=== PATIENT | male | born 1940 | race Caucasian/White ===

== ENCOUNTER → 2016-11-18 | Day surgery (SDC) | payer MEDICARE ==
[~2016-11-18] VITALS: Ht 177.8 cm; Wt 81.6 kg
[~2016-11-18] MED LIST: LISINOPRIL/HCTZ1 TA4 PO; OXYCONTIN40 MG PO; OXYCONTIN60 MG PO; ZOLOFT25 MG PO
--- NOTE | ~2016-11-18 | O ---
[place], [place] OPERATIVE NOTE NAME: ELADIO CALVILLO UNIT #: [id number] ROOM: DOCTOR: RAUL MUNSON MD BIRTHDATE: [birth year] DOS: 11/18/2016 PREOPERATIVE DIAGNOSIS: Cataract, left eye. POSTOPERATIVE DIAGNOSIS: Cataract, left eye. OPERATION: Extracapsular cataract extraction by phacoemulsification with posterior chamber intraocular lens implantation, left eye. ANESTHESIA: Monitored standby. OPERATIVE FINDINGS AND PROCEDURE: 2% Xylocaine topical anesthetic gel was applied to the eye in the preop area. The patient was taken to the operating room and prepped and draped in the standard fashion for sterile intraocular surgery. A time out procedure was performed verifying correct patient, correct site and corrects lens with Ladarius Munson M.D. The operating microscope was swung into position and the lid speculum was inserted. Using a Karlie paracentesis blade, a paracentesis was made through clear cornea. Viscoelastic was used to fill the anterior chamber. Using a metal keratome a 2.4 mm self-sealing clear corneal cataract incision was made temporally at the limbus. Using a pre-bent 25 gauge cystotome needle, a standard continuous curvilinear capsulorrhexis was performed. The anterior capsule was removed with forceps. The lens nucleus was hydrodissected and phacoemulsified in the posterior chamber. Cortical material was removed with the irrigation aspiration hand piece and the posterior capsule was then polished with a curet under irrigation. The posterior chamber and capsular bag were filled with viscoelastic. A posterior chamber intraocular lens manufactured by: [employer], Model #[id number], and 22.0 diopters, left eye, in strength were then inserted into the posterior chamber and within the capsular bag using the lens cartridge and injector system. Viscoelastic was removed using the irrigation aspiration handpiece. The anterior chamber was filled with balanced salt solution through the paracentesis. Both the paracentesis site and cataract incisions were hydrated with BSS and verified to be water-tight and self-sealing. Cefuroxime 1 mg/1 mL was injected into the anterior chamber through the paracentesis site. The incision checked to be water-tight using a Weck-Cece sponge. The integrity of the cataract wound and ocular tension were checked. Lid speculum and drapes were removed. The patient was transferred from the operating room to the recovery room in satisfactory condition. [place], [place] OPERATIVE NOTE NAME: ELADIO CALVILLO UNIT #: [id number] ROOM: DOCTOR: RAUL MUNSON MD BIRTHDATE: [birth year] RAUL MUNSON MD CM:OPRECORD:OPERATIVE NOTE 1323 1757 RAUL MUNSON MD 11/18/16 1758 interface
[2016-11-18 11:45] VITALS: BP 140/64
[2016-11-18 13:10] VITALS: BP 140/65
[2016-11-18 13:24] VITALS: BP 148/69
[2016-11-18 13:35] VITALS: BP 131/60
== END | disposition home or self-care (01) ==
LOC: SDC 11-17 11:00
DX: H26.9 Unspecified cataract (principal); I10 Essential (primary) hypertension; F32.9 Major depressive disorder, single episode, unspecified; K21.9 Gastro-esophageal reflux disease without esophagitis; M46.90 Unspecified inflammatory spondylopathy, site unspecified; Z82.49 Family history of ischemic heart disease and other diseases of the circulatory system

== ENCOUNTER → 2016-12-23 | Day surgery (SDC) | payer MEDICARE ==
[~2016-12-23] VITALS: Ht 177.8 cm; Wt 81.6 kg
--- NOTE | ~2016-12-23 | O ---
[place], [place] OPERATIVE NOTE NAME: ELADIO CALVILLO UNIT #: [id number] ROOM: DOCTOR: RAUL MUNSON MD BIRTHDATE: [birth year] DOS: 12/23/2016 PREOPERATIVE DIAGNOSIS: Cataract, right eye. POSTOPERATIVE DIAGNOSIS: Cataract, right eye. OPERATION: Extracapsular cataract extraction by phacoemulsification with posterior chamber intraocular lens implantation, right eye. ANESTHESIA: Monitored standby. OPERATIVE FINDINGS AND PROCEDURE: A 2% Xylocaine topical anesthetic gel was applied to the eye in the preop area. The patient was taken to the operating room and prepped and draped in the standard fashion for sterile intraocular surgery. A time out procedure was performed verifying correct patient, correct site and corrects lens with Ladarius Munson M.D. The operating microscope was swung into position and the lid speculum was inserted. Using a Karlie paracentesis blade, a paracentesis was made through clear cornea. Viscoelastic was used to fill the anterior chamber. Using a metal keratome a 2.4 mm self-sealing clear corneal cataract incision was made temporally at the limbus. Using a pre-bent 25 gauge cystotome needle, a standard continuous curvilinear capsulorrhexis was performed. The anterior capsule was removed with forceps. The lens nucleus was hydrodissected and phacoemulsified in the posterior chamber. Cortical material was removed with the irrigation aspiration hand piece and the posterior capsule was then polished with a curet under irrigation. The posterior chamber and capsular bag were filled with viscoelastic. A posterior chamber intraocular lens manufactured by: [employer], Model #[id number], and 22.0 diopters in strength were then inserted into the posterior chamber and within the capsular bag using the lens cartridge and injector system. Viscoelastic was removed using the irrigation aspiration handpiece. The anterior chamber was filled with balanced salt solution through the paracentesis. Both the paracentesis site and cataract incisions were hydrated with BSS and verified to be water-tight and self-sealing. Cefuroxime 1 mg/0.1 mL was injected into the anterior chamber through the paracentesis site. The incision checked to be water-tight using a Weck-Cece sponge. The integrity of the cataract wound and ocular tension were checked. Lid speculum and drapes were removed. The patient was transferred from the operating room to the recovery room in satisfactory condition. [place], [place] OPERATIVE NOTE NAME: ELADIO CALVILLO UNIT #: [id number] ROOM: DOCTOR: RAUL MUNSON MD BIRTHDATE: [birth year] RAUL MUNSON MD CM:OPRECORD:OPERATIVE NOTE 1307 175 RAUL MUNSON MD 12/23/16 1759 interface
[2016-12-23 11:59] VITALS: BP 146/57
[2016-12-23 13:04] VITALS: BP 125/57
[2016-12-23 13:15] VITALS: BP 132/60
[2016-12-23 13:30] VITALS: BP 122/63
== END | disposition home or self-care (01) ==
LOC: SDC 12-17 11:00
DX: H26.9 Unspecified cataract (principal); F32.9 Major depressive disorder, single episode, unspecified; I10 Essential (primary) hypertension; K21.9 Gastro-esophageal reflux disease without esophagitis; M46.90 Unspecified inflammatory spondylopathy, site unspecified; Z82.49 Family history of ischemic heart disease and other diseases of the circulatory system; Z98.890 Other specified postprocedural states; Z87.891 Personal history of nicotine dependence

== ENCOUNTER 2018-10-09 17:44 | Inpatient (IN) | payer MEDICARE ==
[2018-10-09] VITALS (7 sets, daily range): BP systolic 102–146; BP diastolic 33–80
[~2018-10-09] VITALS: Ht 177.8 cm; Wt 81.9 kg
--- NOTE | ~2018-10-09 | PR ---
[place], [place] PROGRESS NOTE NAME: ELADIO CALVILLO UNIT #: [id number] ROOM: 404 DOCTOR: GROVER PATEL MD BIRTHDATE: [birth year] DOS: 10/10/2018 SUBJECTIVE: The patient is feeling much better after blood transfusion and hydration. OBJECTIVE: GENERAL APPEARANCE: The patient is alert and oriented x 3, in no visible distress. VITAL SIGNS: Blood pressure 153/61, heart rate of 74 beats per minute, breathing 17 times per minute, afebrile. HEENT AND NECK: Exam within normal limits. CARDIOVASCULAR SYSTEM: Heart rate is regular in rate and rhythm. S1 and S2 normally audible. LUNGS: Clear to auscultation. ABDOMEN: Soft, nontender. No obvious organomegaly. Bowel sounds are present. EXTREMITIES: Without significant cyanosis or edema. IMPRESSION: 1. Acute blood loss anemia. Hemoglobin is still low at 6.8. I will give the patient 2 more units of packed cells. The patient is still having black colored stools. 2. Acute upper gastrointestinal bleed. The patient is waiting for further workup by Dr. Fall, the bean sprout grower. 3. Acute over chronic kidney failure, creatinine of 2.02, has improved with hydration with normal saline to 1.54. I will continue with normal saline infusion. 4. 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 The patient remains on oxycodone. 5. Major depression, treated and controlled with Zoloft. 6. Benign essential hypertension. Blood pressure is monitored and treated and staying normal. 7. The patient remains on IV Protonix for GI bleed. GROVER PATEL MD CM:PNTRANS 1625 22 GROVER PATEL MD 10/10/181822 interface
--- NOTE | ~2018-10-09 | CON ---
[place], [place] REPORT OF CONSULTATION NAME: ELADIO CALVILLO UNIT #: [id number] ROOM: 404 DOCTOR: RANDY BLACKMON MD BIRTHDATE: [birth year] DOS: 10/09/2018 HISTORY OF PRESENT ILLNESS: A 78-year-old patient who was seen for past 2 weeks, feeling tired, short of breath and not feeling well, diarrhea, eventually some blood in the stool was noticed. The patient has been taking apparently some nonsteroidal anti-inflammatory here and there for his back pain, which is a chronic issue for him at the time of admission, H and H was 6 and 19, all macrocytic indices; however, platelet 276,000. INR was 1.0. Comprehensive metabolic panel: Glucose 226, BUN and creatinine 49 and 2.0 with a GFR of 32. His INR 1.0. His electrolyte balance, liver function test normal. PAST MEDICAL HISTORY: Associated with chronic back pain and history of hypertension and depression. PAST SURGICAL HISTORY: Cardiac catheterization, appendectomy, and cystoscopy. MEDICATIONS: List has been reviewed. ALLERGIES: No known medication. SOCIAL HISTORY: Nonsmoker, rare alcohol consumer. FAMILY HISTORY: Myocardial infarction history. REVIEW OF SYSTEMS: HEENT: Denies double vision, blurred vision. RESPIRATORY: Denies acute shortness of breath. CARDIOVASCULAR: Denies acute chest pain. DIGESTIVE SYSTEM: No hematemesis, no hematochezia; however, some diarrhea, blood in the stool. PHYSICAL EXAMINATION: VITAL SIGNS: Stable. HEENT: Head normocephalic, nontraumatic. Eyes: Pupils round, reactive. Sclerae nonicteric. NECK: Supple, no thyromegaly, no cervical lymphadenopathy. CHEST: Symmetric anatomy, equal expansion. No wheeze. Acute rhonchi. HEART: Normal sinus rhythm, no gallop, no murmur. ABDOMEN: Soft. No hepato-organomegaly. Bowel sounds present. No pulsatile mass. EXTREMITIES: No cyanosis, no pedal edema. NEUROLOGIC: Alert, oriented to time, place, person. Sensory, motor intact. Cranial nerves 2-12 intact. LABORATORY DATA: Reviewed, records reviewed, we will discuss with the family. PLAN AND DISCUSSION: 1. Gastrointestinal bleed. Etiology to be determined, most likely upper gastrointestinal bleed with elevation of BUN, prerenal azotemia, tachycardia. All have been of the same etiology. He has had colonoscopy a few years ago; [place], [place] REPORT OF CONSULTATION NAME: ELADIO CALVILLO UNIT #: [id number] ROOM: 404 DOCTOR: RANDY BLACKMON MD BIRTHDATE: [birth year] however, this is going to be reassessed during his stay, we are going to have a troponin level also obtained. He is going to get 2 units of transfusion and he is going to remain on PPI and clinical reassessment. Other adjunctive diagnoses, hypertension, chronic lower back pain, history of nonsteroidal anti-inflammatory. Thank you very much. RANDY BLACKMON MD CM:CONSTR:REPORT OF CONSULTATION 13 10/10/18 0847 interface
--- NOTE | ~2018-10-09 | O ---
[place], [place] OPERATIVE NOTE NAME: ELADIO CALVILLO UNIT #: [id number] ROOM: 404 DOCTOR: RANDY BLACKMON MD BIRTHDATE: [birth year] DOS: 10/10/2018 HISTORY OF PRESENT ILLNESS: The patient has presented with profound anemia, tiredness, undergoing investigation. The patient has been seen last night in the Emergency Room, was found to have an H and H of 6 and 19, status post transfusion of 2 units, CBC still has been about 6 and 20. The patient with a nonsteroidal anti-inflammatory history. PROCEDURE: Today's procedure part of investigation is panendoscopy plus biopsy. PREMEDICATION: Propofol. SCOPE: Olympus forward-viewing gastroscope Q10 video. REPORT: After putting the patient in left lateral position and application of lubricant to the scope. Scope was introduced. Thereafter, under direct visualization, advanced through the length. Gastric pouch was entered. Gastritis seen, antral ulcer, small was noticed. Duodenal bulb ulcer or duodenitis was noticed. Neither was actively bleeding. Margin of antral ulcer, biopsied. Photographic series obtained. Air was suctioned out. The patient was extubated, tolerated the procedure well. IMPRESSION: Antral ulcer, duodenal ulcer, status post biopsy. PLAN AND DISCUSSION: Continuation with Protonix and full liquid diet and transfusion of 2 units, stabilization of H and H and future he may need colonoscopy. RANDY BLACKMON MD CM:OPRECORD:OPERATIVE NOTE 45 20 RANDY BLACKMON MD 10/14/18 1523 interface
--- NOTE | ~2018-10-09 | WRIGHTHP ---
[place], [place] PATIENT HISTORY AND PHYSICAL EXAM NAME: [facility]ILLO [id number] UNIT #: [id number] ROOM: 404 DOCTOR: GROVER PATEL MD BIRTHDATE: [birth year] DOS: 10/09/2018 HISTORY OF PRESENT ILLNESS: The patient is a 78-year-old gentleman with a past medical history of: 1. Benign essential hypertension. 2. Paroxysmal SVT. 3. 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 4. Lumbar spondylosis. 5. History of kidney stones. The patient presented to the Emergency Department with 2-week complaints of noticing black and red stools. He also had some episodes of vomiting and he was found to be severely anemic with hemoglobin of 6.3 and also had a creatinine elevation to 2.02 with BUN at 49 and blood sugar of 226. The patient was ordered 2 units of packed cells and admitted to a monitored bed with Dr. Fall on a stat consult. No chest pains. Some shortness of breath with exertion. No other GI or urinary symptoms. REVIEW OF SYSTEMS: RESPIRATORY: Some shortness of breath. GASTROINTESTINAL: Black and red stools. CARDIOVASCULAR: No chest pain, no palpitations. FAMILY HISTORY: Not contributory. SOCIAL HISTORY: Denies smoking cigarettes, alcohol and drug abuse. HOME MEDICATIONS: Zoloft, oxycodone. ALLERGIES: No known drug allergies. PHYSICAL EXAMINATION: GENERAL APPEARANCE: Alert, oriented x 3, poor historian. No visible distress. HEENT AND NECK: Extraocular movements are intact. Sclerae are anicteric. Oral mucosa is moist and clean. No obvious facial weakness. Neck is supple without any lymphadenopathy. No thyromegaly. No JVD. No carotid arterial bruits. LUNGS: Clear to auscultation. No wheezing. No rhonchi. CARDIOVASCULAR SYSTEM: Heart rate is regular in rate and rhythm. S1 and S2 normally audible. No significant murmur or any other abnormal cardiac sounds. ABDOMEN: Soft, nontender. No obvious organomegaly. Bowel sounds are present. No obvious herniation. EXTREMITIES: Without significant cyanosis or edema. Warm to touch. CENTRAL NERVOUS SYSTEM: Alert and oriented x 3. Cranial nerves II-XII are intact. Speech is normal. The patient is able to move all extremities. Normal muscle strength. Deep tendon reflexes are equal on both sides. Plantars were downgoing. IMPRESSION AND PLAN: 1. Acute upper gastrointestinal bleed with black and red stools with severe anemia of 6.3 hemoglobin with packed cells arranged for him for blood [place], [place] PATIENT HISTORY AND PHYSICAL EXAM NAME: ELADIO CALVILLO UNIT #: [id number] ROOM: 404 DOCTOR: GROVER PATEL MD BIRTHDATE: [address] Fall, the rig superintendent has already evaluated him and hemoglobin will be monitored and the patient started on intravenous Protonix. The patient is not giving any history of using NSAIDs. He only takes oxycodone for pain control. 2. Precipitous anemia with precipitous drop in hemoglobin to 6.2 from acute upper gastrointestinal bleed. To be monitored and followed and treated with blood transfusion. 3. Cervical and lumbar spinal stenosis with lumbar spondylosis with chronic pains. I continued oxycodone. 4. Major depression, recurrent, mild, treated with Zoloft. 5. Benign essential hypertension. Blood pressures to be monitored and treated. The patient is on diet. GROVER PATEL MD CM:HISPHYS:PATIENT HISTORY AND PHYSICAL EXAMINATION 10 37 GROVER PATEL MD 10/09/182136 interface
--- NOTE | ~2018-10-09 | EKG ---
[place], [place] ELECTROCARDIOGRAM REPORT NAME: ELADIO CALVILLO UNIT #: [id number] ROOM: 404 DOCTOR: EPIPHANY DRAFT REPORT BIRTHDATE: [birth year] [facility] Test Date: 2018-10-10 Test Time: 16:54:14 Pat Name: ELADIO CALVILLO Department: Room: [facility] 2 Gender: M Integrated Circuits Inspector: Barbra Leonard : 1940 Requested By: GROVER PATEL Order Number: [id number] Reading MD: Joelle Peralta MD Measurements Intervals [place] Rate: 77 P: 0 LA: 81 QRS: 1 QRSD: 170 T: -2 QT: 440 QTc: 499 Interpretive Statements Second degree 1st degree AV block, blocked PAC Atrial premature complexes Right bundle branch block No previous ECG available for comparison Electronically Signed On 10-11-2018 15:51:35 PDT by Joelle Peralta MD CM:EKGRPT:ELECTROCARDIOGRAM REPORT 1654 1551 GROVER PATEL MD EPIPHANY DRAFT REPORT GROVER PATEL MD
[2018-10-09 18:16] LABS: BASO % 0.2 % (0.0-1.0); EOS # 0.1 10*3/uL (0.0-0.4); EOS % 0.6 % (1.0-4.0); HEMATOCRIT 19.2 % (42.0-52.0); HEMOGLOBIN 6.3 g/dl (14.0-18.0); LYMPH # 1.8 10*3/uL (1.3-4.4); LYMPH % 14.6 % (27.0-41.0); MEAN CELL VOLUME 101.6 fl (80.0-94.0); MEAN CORPUSCULAR HGB 33.3 pg (27.0-31.0); MEAN CORPUSCULAR HGB CONC 32.8 g/dl (33.0-37.0); MEAN PLATELET VOLUME 9.4 fl (9.6-12.3); MONO % 7.7 % (3.0-9.0); NEUT # 9.5 10*3/uL (2.3-7.9); NEUT % 75.8 % (47.0-73.0); NUCLEATED RED BLOOD CELL 0.2 % (0.0-0.0); PLATELET COUNT AUTOMATED 276 10*3/uL (130-400); RED BLOOD COUNT 1.89 10*6/uL (4.50-5.90); RED CELL DISTRI WIDTH 16.9 % (0-14.5); WHITE BLOOD COUNT 12.6 10*3/uL (4.8-10.8)
[2018-10-09 18:46] LABS: ALBUMIN 3.2 gm/dl (3.1-4.5); CREATININE 2.02 mg/dL (0.70-1.30); POTASSIUM 3.5 mmol/L (3.5-5.1); TOTAL PROTEIN 6.4 gm/dL (6.4-8.2)
--- NOTE | 2018-10-09 20:50 | NUR ---
A 78, admitted to , under the services of Dr. AMANDA MARLOW,GROVER Palafox with a diagnosis of GI BLEED, ACUTE RENAL FAILURE, ANEMIA. Chief complaint is DARK STOOLS X2 WKS WITH RED BLEEDING ALSO MORE RECENTLY. Patient arrived via stretcher from ER. Monitor applied. Initial assessment completed. Vital signs taken and recorded. DR. AMANDA MARLOW,GROVER Palafox notified of admission to the unit. Orders received. See assessment for past medical history, medications and allergies. Patient and/or family oriented to unit. [address] visitation policy reviewed. Clothing/patient valuable form completed. YESSY GONZALES
[2018-10-09 21:00] LABS: BILIRUBIN NEGATIVE (NEGATIVE); BLOOD NEGATIVE (NEGATIVE); CLARITY CLEAR (CLEAR); COLOR YELLOW (YELLOW); GLUCOSE NEGATIVE (NEGATIVE); KETONE NEGATIVE (NEGATIVE); LEUKO ESTERASE NEGATIVE (NEGATIVE); NITRITE NEGATIVE (NEGATIVE); PH 5.5 (5.0-9.0); SPECIFIC GRAVITY 1.015 (1.005-1.030); UROBILINOGEN 0.2 E.U./dl (0.2-1.0)
[2018-10-09 21:12] LABS: BACTERIA TRACE; WBC 0-2 wbc/hpf (0-5)
[2018-10-09] MEDS ORDERED: OXYCONTIN40 M1 PO (22:34)
[2018-10-10] VITALS (13 sets, daily range): BP systolic 106–153; BP diastolic 43–82
--- NOTE | 2018-10-10 | NUR ---
Patient resting quietly with no c/o discomfort. Respirations easy and regular. Vital signs stable. No overt distress. YESSY GONZALES
--- NOTE | 2018-10-10 04:10 | NUR ---
Patient resting quietly with no c/o discomfort. Respirations easy and regular. Vital signs stable. No overt distress. YESSY GONZALES
[2018-10-10 06:11] LABS: CHLORIDE 109 mmol/L (98-107); CREATININE 1.54 mg/dL (0.70-1.30); POTASSIUM 3.3 mmol/L (3.5-5.1); SODIUM 141 mmol/L (136-145)
[2018-10-10 06:13] LABS: BUN 36 mg/dl (7-24); TROPONIN I < 0.015 ng/ml (<0.045)
[2018-10-10 07:18] LABS: BASO % 0.2 % (0.0-1.0); EOS # 0.2 10*3/uL (0.0-0.4); EOS % 1.7 % (1.0-4.0); HEMATOCRIT 20.3 % (42.0-52.0); HEMOGLOBIN 6.8 g/dl (14.0-18.0); LYMPH # 2.5 10*3/uL (1.3-4.4); MEAN CORPUSCULAR HGB 32.5 pg (27.0-31.0); MEAN CORPUSCULAR HGB CONC 33.5 g/dl (33.0-37.0); MEAN PLATELET VOLUME 10.2 fl (9.6-12.3); MONO # 0.7 10*3/uL (0.1-1.0); MONO % 8.1 % (3.0-9.0); NEUT # 5.4 10*3/uL (2.3-7.9); NEUT % 61.3 % (47.0-73.0); PLATELET COUNT AUTOMATED 198 10*3/uL (130-400); RED BLOOD COUNT 2.09 10*6/uL (4.50-5.90); RED CELL DISTRI WIDTH 17.4 % (0-14.5); WHITE BLOOD COUNT 8.9 10*3/uL (4.8-10.8)
[2018-10-10 07:24] LABS: MEAN CELL VOLUME 97.1 fl (80.0-94.0)
--- NOTE | 2018-10-10 09:00 | NUR ---
Skein Tier in to talk to patient. Patient states lives at home with his . There are basement steps in the home. Physician: Dr. Andre Tran [facility] Home health services: none Patient's level of ADLs: INDEPENDENT Patient has working utilities: yes DME: none Follow-up physician's appointment after d/c: he prefers to make his own follow up appt after discharge Does patient want to access PORTAL?: no Discharge plan discussed with patient. He lives at home with his . He is independent in his ADLs and ambulation. Discussed home health care services and he denies any home needs at this time. When medically stable he will be discharged to home. CLAYTON VILLALPANDO
--- NOTE | 2018-10-10 10:00 | NUR ---
DR BLACKMON NOTIFIED OF PT HEMOGLOBIN AND HEMATOCRIT LEVELS OBTAINED THIS MORNING. NEW ORDERS RECEIVED TO KEEP PT NPO, SCHEDULE PT FOR EGD FOR LATER THIS AFTERNOON, AND TRANSFUSE ONE UNIT OF PACKED RED BLOOD CELLS. ALL ORDERS CARRIED OUT ACCORDINGLY. PT AWARE. SURGERY NOTIFIED.
--- NOTE | 2018-10-10 11:17 | NUR ---
TRANSFUSION OF ONE UNIT OF PACKED RED BLOOD CELLS INITIATED AT THIS TIME. WILL MONITOR PT. NO S/S OF DISTRESS NOTED AT THIS TIME. PT SITTING UP IN BED, FAMILY AT BEDSIDE. CALL LIGHT IN REACH.
--- NOTE | 2018-10-10 13:15 | NUR ---
BLOOD TRANSFUSION COMPLETE AT THIS TIME. PT TOLERATED WELL. VITALS WNL. NO REACTIONS NOTED.
[2018-10-11] VITALS: BP 134/64
--- NOTE | 2018-10-11 00:47 | NUR ---
PATIENT AT THIS TIME REFUSING HIS HEART MONITOR. STATES THAT HES LEAVING IN THE MORNING AND DOESN'T NEED IT TONIGHT.
--- NOTE | 2018-10-11 06:50 | NUR ---
CALLED ADINA IN LAB INQUIRING ABOUT IF THE PATIENTS BLOOD HAS BEEN DRAWN AND SENT YET SINCE THIS NURSE IS WAITING TO CALL THE DOCTOR WITH A RESULT. HE STATED THAT IT WAS DRAWN, BUT JUST HAS NOT BEEN SENT YET
[2018-10-11 07:19] LABS: BASO % 0.4 % (0.0-1.0); EOS # 0.3 10*3/uL (0.0-0.4); EOS % 4.8 % (1.0-4.0); LYMPH # 1.7 10*3/uL (1.3-4.4); LYMPH % 24.7 % (27.0-41.0); MEAN CORPUSCULAR HGB 29.3 pg (27.0-31.0); MEAN CORPUSCULAR HGB CONC 32.7 g/dl (33.0-37.0); MEAN PLATELET VOLUME 9.9 fl (9.6-12.3); MONO # 0.6 10*3/uL (0.1-1.0); NEUT # 4.2 10*3/uL (2.3-7.9); NEUT % 60.5 % (47.0-73.0); PLATELET COUNT AUTOMATED 189 10*3/uL (130-400); RED BLOOD COUNT 3.34 10*6/uL (4.50-5.90); RED CELL DISTRI WIDTH 19.7 % (0-14.5); WHITE BLOOD COUNT 6.9 10*3/uL (4.8-10.8)
[2018-10-11 07:20] LABS: HEMOGLOBIN 9.8 g/dl (14.0-18.0); MEAN CELL VOLUME 89.8 fl (80.0-94.0)
[2018-10-11 07:35] LABS: CHLORIDE 111 mmol/L (98-107); CREATININE 1.19 mg/dL (0.70-1.30); POTASSIUM 3.7 mmol/L (3.5-5.1); SODIUM 142 mmol/L (136-145)
[2018-10-11 07:40] LABS: BUN 21 mg/dl (7-24)
--- NOTE | 2018-10-11 07:55 | NUR ---
PT RESTING IN BED. STATES HE IS GOING HOME SOON. INSTRUCTED PT HAS TO WAIT FOR DOCTOR TO COME AND AND DISCHARGE HIM. REFUSES TO WEAR MONITOR STATES HE DON'T NEED IT. CALL LIGHT IN REACH. SEE SHIFT ASSESSMENT.
--- NOTE | 2018-10-11 10:18 | NUR ---
LEFT MESSAGE ON DR. BLACKMON MACHINE TO CALL REGARDING PT H&H PER HIS REQUEST.
--- NOTE | 2018-10-11 10:44 | NUR ---
CALLED DR. PATEL MADE AWARE PT IS LEAVING AMA.
--- NOTE | 2018-10-11 10:47 | NUR ---
PT AMBULATORY OFF THE FLOOR LEAVING AMA. HEPLOCK REMOVED 2X2 APPLIED. FAMILY AT HIS SIDE.
== END 2018-10-11 10:47 | disposition left against medical advice (07) | DRG 377 ==
LOC: ED 17:44 → 4E 19:20 → EDHOLD 19:20 → 4E 20:10
PROVIDERS: Internal Medicine Gastroenterology; Nurse Practitioner Family; ADMIT Internal Medicine
PROC: 30233N1 Transfusion of Nonautologous Red Blood Cells into Peripheral Vein, Percutaneous Approach (ICD-10-PCS; principal; 2018-10-09)
PROC: 0DB68ZX Excision of Stomach, Via Natural or Artificial Opening Endoscopic, Diagnostic (ICD-10-PCS; 2018-10-10)
DX: K25.0 Acute gastric ulcer with hemorrhage (principal); N17.0 Acute kidney failure with tubular necrosis; D62 Acute posthemorrhagic anemia; K29.71 Gastritis, unspecified, with bleeding; K25.4 Chronic or unspecified gastric ulcer with hemorrhage; K29.81 Duodenitis with bleeding; K26.4 Chronic or unspecified duodenal ulcer with hemorrhage; Z53.21 Procedure and treatment not carried out due to patient leaving prior to being seen by health care provider; N18.9 Chronic kidney disease, unspecified; F32.9 Major depressive disorder, single episode, unspecified; I12.9 Hypertensive chronic kidney disease with stage 1 through stage 4 chronic kidney disease, or unspecified chronic kidney disease; M48.061 Spinal stenosis, lumbar region without neurogenic claudication; M48.02 Spinal stenosis, cervical region; Z90.49 Acquired absence of other specified parts of digestive tract

== ENCOUNTER → 2019-08-03 | Outpatient (CLI) | payer MEDICARE ==
[~2019-08-03] MED LIST changes: +OXYCONTIN40 M1 PO
== END | disposition home or self-care (01) ==
LOC: MRI 13:00
DX: M48.02 Spinal stenosis, cervical region (principal)

== ENCOUNTER → 2019-11-20 | Outpatient (CLI) | payer MEDICARE ==
[2019-11-20 16:15] LABS: BASO % 0.4 % (0.0-1.0); EOS # 0.2 10*3/uL (0.0-0.4); EOS % 1.9 % (1.0-4.0); HEMATOCRIT 40.7 % (42.0-52.0); LYMPH # 1.8 10*3/uL (1.3-4.4); LYMPH % 22.5 % (27.0-41.0); MEAN CELL VOLUME 89.6 fl (80.0-94.0); MEAN CORPUSCULAR HGB 30.6 pg (27.0-31.0); MEAN CORPUSCULAR HGB CONC 34.2 g/dl (33.0-37.0); MEAN PLATELET VOLUME 9.6 fl (9.6-12.3); MONO # 0.6 10*3/uL (0.1-1.0); MONO % 7.5 % (3.0-9.0); NEUT # 5.4 10*3/uL (2.3-7.9); NEUT % 67.3 % (47.0-73.0); PLATELET COUNT AUTOMATED 227 10*3/uL (130-400); RED BLOOD COUNT 4.54 10*6/uL (4.50-5.90); RED CELL DISTRI WIDTH 12.8 % (0-14.5); WHITE BLOOD COUNT 8.1 10*3/uL (4.8-10.8)
[2019-11-20 16:34] LABS: ALBUMIN 3.8 gm/dl (3.1-4.5); ALKALINE PHOSPHATASE 110 U/L (45-117); BUN 20 mg/dl (7-24); CHLORIDE 107 mmol/L (98-107); CHOLESTEROL 162 mg/dL (<200); CPK 92 U/L (39-308); CREATININE 0.99 mg/dL (0.70-1.30); FREE T4 1.01 ng/dl (0.76-1.46); HDL CHOLESTEROL 54 mg/dl (40-60); LDL CHOLESTEROL 82 mg/dL (9-159); POTASSIUM 3.8 mmol/L (3.5-5.1); SGOT/AST 18 IU/L (3-35); SGPT/ALT 23 U/L (12-78); SODIUM 140 mmol/L (136-145); TOTAL PROTEIN 7.5 gm/dL (6.4-8.2); TRIGLYCERIDES 129 mg/dl (<150); VLDL CHOLESTEROL 26 mg/dL (6-40)
[2019-11-20 16:38] LABS: THYROID STIM HORMONE (HS) 0.662 uIU/ml (0.358-4.75)
[2019-11-20 17:30] LABS: VITAMIN D, 25-HYDROXY 25.7 ng/mL (30-100)
== END | disposition home or self-care (01) ==
LOC: LAB 15:47
PROVIDERS: Internal Medicine
DX: Z00.00 Encounter for general adult medical examination without abnormal findings (principal); I10 Essential (primary) hypertension; E78.2 Mixed hyperlipidemia; D52.9 Folate deficiency anemia, unspecified; E55.9 Vitamin D deficiency, unspecified; D51.9 Vitamin B12 deficiency anemia, unspecified

== ENCOUNTER 2020-09-19 15:10 | Observation (INO) | payer MEDICARE ==
[~2020-09-19] VITALS: Ht 177.8 cm; Wt 77.6 kg
[2020-09-19 15:20] VITALS: BP 157/87
[2020-09-19 15:49] LABS: BASO % 0.5 % (0.0-1.0); EOS # 0.2 10*3/uL (0.0-0.4); EOS % 2.3 % (1.0-4.0); HEMATOCRIT 40.3 % (42.0-52.0); LYMPH # 2.1 10*3/uL (1.3-4.4); LYMPH % 32.3 % (27.0-41.0); MEAN CELL VOLUME 89.2 fl (80.0-94.0); MEAN CORPUSCULAR HGB 30.1 pg (27.0-31.0); MEAN CORPUSCULAR HGB CONC 33.7 g/dl (33.0-37.0); MEAN PLATELET VOLUME 9.4 fl (9.6-12.3); MONO # 0.6 10*3/uL (0.1-1.0); NEUT # 3.7 10*3/uL (2.3-7.9); NEUT % 55.7 % (47.0-73.0); PLATELET COUNT AUTOMATED 254 10*3/uL (130-400); RED BLOOD COUNT 4.52 10*6/uL (4.50-5.90); RED CELL DISTRI WIDTH 12.6 % (0-14.5); WHITE BLOOD COUNT 6.5 10*3/uL (4.8-10.8)
[2020-09-19 16:07] LABS: ALBUMIN 3.6 gm/dl (3.1-4.5); ALKALINE PHOSPHATASE 156 U/L (45-117); BUN 24 mg/dl (7-24); CHLORIDE 103 mmol/L (98-107); CREATININE 1.21 mg/dL (0.70-1.30); SGOT/AST 16 IU/L (3-35); SGPT/ALT 17 U/L (12-78); SODIUM 136 mmol/L (136-145); TOTAL PROTEIN 7.8 gm/dL (6.4-8.2)
[2020-09-19 16:13] LABS: TROPONIN I < 0.015 ng/ml (<0.045)
[2020-09-19 21:42] VITALS: BP 143/71
[2020-09-19 22:39] LABS: BILIRUBIN Negative (Negative); BLOOD Negative (Negative); CLARITY Clear (Clear); COLOR Yellow (Yellow); GLUCOSE Negative (Negative); KETONE Negative (Negative); LEUKO ESTERASE Negative (Negative); NITRITE Negative (Negative); UROBILINOGEN 0.2 E.U./dl (0.0-1.0)
[2020-09-19 22:45] VITALS: BP 162/72
[2020-09-19 22:55] LABS: RBC 0-2 rbc/hpf (0-2); WBC 0-2 wbc/hpf (0-5)
[2020-09-19 23:00] VITALS: BP 149/83
[2020-09-19] MEDS ORDERED: PRILOSEC20 M1 PO (23:40)
[2020-09-19] MEDS ORDERED: AMLODIPINE BESY10 MG PO (23:41)
[2020-09-20 08:00] VITALS: BP 105/61
[2020-09-20 12:00] VITALS: BP 124/52
[2020-09-20 14:07] LABS: VITAMIN D, 25-HYDROXY 46.2 ng/mL (30-100)
[2020-09-20 16:00] VITALS: BP 124/76
[2020-09-20 20:00] VITALS: BP 126/68
[2020-09-21] VITALS: BP 148/72
[2020-09-21 00:06] LABS: RBC, FOLATE HEMATOCRIT 39.2 % (37.5-51.0)
[2020-09-21 08:00] VITALS: BP 139/80
[2020-09-21 12:00] VITALS: BP 138/79
[2020-09-21 16:00] VITALS: BP 127/71
== END 2020-09-21 18:46 | disposition left against medical advice (07) ==
LOC: ED 15:10 → 5E 22:25 → EDHOLD 22:25 → 5E 22:59
PROVIDERS: Counselor Professional; Physician Assistant; ADMIT Internal Medicine; ATTEND Internal Medicine
DX: I48.20 Chronic atrial fibrillation, unspecified (principal); R41.0 Disorientation, unspecified; G89.29 Other chronic pain; M54.2 Cervicalgia; M54.5 Low back pain; G30.1 Alzheimer's disease with late onset; F02.80 Dementia in other diseases classified elsewhere, unspecified severity, without behavioral disturbance, psychotic disturbance, mood disturbance, and anxiety; F32.9 Major depressive disorder, single episode, unspecified; I10 Essential (primary) hypertension; G89.4 Chronic pain syndrome; I45.10 Unspecified right bundle-branch block; I44.0 Atrioventricular block, first degree; G93.40 Encephalopathy, unspecified; N17.9 Acute kidney failure, unspecified; K92.2 Gastrointestinal hemorrhage, unspecified; D64.9 Anemia, unspecified; I49.9 Cardiac arrhythmia, unspecified; Z87.442 Personal history of urinary calculi; Z98.890 Other specified postprocedural states

== ENCOUNTER 2021-05-14 20:09 | Inpatient (IN) | payer MEDICARE ==
[~2021-05-14] VITALS: Ht 177.8 cm; Wt 73.5 kg
[~2021-05-14 20:09] MED LIST changes: +AMLODIPINE BESY10 MG PO; +PRILOSEC20 M1 PO
[2021-05-14 20:13] VITALS: BP 147/69
[2021-05-14 20:26] LABS: HEMATOCRIT 38.8 % (42.0-52.0); MEAN CELL VOLUME 88.8 fl (80.0-94.0); MEAN CORPUSCULAR HGB CONC 33.8 g/dl (33.0-37.0); MEAN PLATELET VOLUME 9.5 fl (9.6-12.3); PLATELET COUNT AUTOMATED 353 10*3/uL (130-400); RED BLOOD COUNT 4.37 10*6/uL (4.50-5.90); RED CELL DISTRI WIDTH 12.7 % (0-14.5); WHITE BLOOD COUNT 17.8 10*3/uL (4.8-10.8)
[2021-05-14 20:59] LABS: ALBUMIN 2.2 gm/dl (3.1-4.5); ALKALINE PHOSPHATASE 122 U/L (45-117); BUN 23 mg/dl (7-24); CHLORIDE 102 mmol/L (98-107); CREATININE 0.96 mg/dL (0.70-1.30); POTASSIUM 3.7 mmol/L (3.5-5.1); SGOT/AST 27 IU/L (3-35); SGPT/ALT 24 U/L (12-78); SODIUM 133 mmol/L (136-145); TOTAL PROTEIN 7.4 gm/dL (6.4-8.2)
[2021-05-14 21:08] LABS: PLATELET SUFFICIENCY NORMAL (NORMAL); TOTAL CELLS COUNTED 100 #CELLS
[2021-05-14 21:09] LABS: BURR CELLS FEW
[2021-05-14 23:30] VITALS: BP 136/83
[2021-05-15] VITALS: BP 136/83
[2021-05-15 08:00] VITALS: BP 136/85
[2021-05-15 12:00] VITALS: BP 152/90
[2021-05-15 16:00] VITALS: BP 123/83
[2021-05-15 20:00] VITALS: BP 140/78
[2021-05-16] VITALS: BP 136/67
[2021-05-16 06:17] LABS: HEMATOCRIT 34.5 % (42.0-52.0); MEAN CELL VOLUME 89.1 fl (80.0-94.0); MEAN CORPUSCULAR HGB 29.7 pg (27.0-31.0); MEAN CORPUSCULAR HGB CONC 33.3 g/dl (33.0-37.0); MEAN PLATELET VOLUME 9.6 fl (9.6-12.3); PLATELET COUNT AUTOMATED 338 10*3/uL (130-400); RED BLOOD COUNT 3.87 10*6/uL (4.50-5.90); RED CELL DISTRI WIDTH 12.9 % (0-14.5); WHITE BLOOD COUNT 19.4 10*3/uL (4.8-10.8)
[2021-05-16 06:38] LABS: ALBUMIN 1.9 gm/dl (3.1-4.5); ALKALINE PHOSPHATASE 100 U/L (45-117); CHLORIDE 105 mmol/L (98-107); CREATININE 1.19 mg/dL (0.70-1.30); LDH 245 U/L (87-241); POTASSIUM 3.5 mmol/L (3.5-5.1); SGOT/AST 19 IU/L (3-35); SGPT/ALT 23 U/L (12-78); SODIUM 137 mmol/L (136-145); TOTAL PROTEIN 6.6 gm/dL (6.4-8.2)
[2021-05-16 06:39] LABS: BUN 46 mg/dl (7-24)
[2021-05-16 07:24] LABS: TOTAL CELLS COUNTED 100 #CELLS
[2021-05-16 07:25] LABS: BURR CELLS FEW; PLATELET SUFFICIENCY NORMAL (NORMAL)
[2021-05-16 08:00] VITALS: BP 124/78
[2021-05-16 12:00] VITALS: BP 140/58
[2021-05-16 16:00] VITALS: BP 126/84
[2021-05-16 20:00] VITALS: BP 134/81
[2021-05-16 23:36] VITALS: BP 141/73
[2021-05-17 06:06] LABS: BASO % 0.1 % (0.0-1.0); EOS % 0.1 % (1.0-4.0); HEMATOCRIT 36.6 % (42.0-52.0); LYMPH # 1.4 10*3/uL (1.3-4.4); LYMPH % 8.6 % (27.0-41.0); MEAN CELL VOLUME 90.6 fl (80.0-94.0); MEAN CORPUSCULAR HGB 29.7 pg (27.0-31.0); MEAN CORPUSCULAR HGB CONC 32.8 g/dl (33.0-37.0); MEAN PLATELET VOLUME 9.7 fl (9.6-12.3); MONO # 1.2 10*3/uL (0.1-1.0); MONO % 7.3 % (3.0-9.0); NEUT # 13.7 10*3/uL (2.3-7.9); NEUT % 82.8 % (47.0-73.0); PLATELET COUNT AUTOMATED 400 10*3/uL (130-400); RED BLOOD COUNT 4.04 10*6/uL (4.50-5.90); RED CELL DISTRI WIDTH 13.2 % (0-14.5); WHITE BLOOD COUNT 16.6 10*3/uL (4.8-10.8)
[2021-05-17 06:24] LABS: ALBUMIN 2.1 gm/dl (3.1-4.5); ALKALINE PHOSPHATASE 101 U/L (45-117); BUN 42 mg/dl (7-24); CHLORIDE 107 mmol/L (98-107); LDH 252 U/L (87-241); POTASSIUM 3.6 mmol/L (3.5-5.1); SGOT/AST 18 IU/L (3-35); SGPT/ALT 21 U/L (12-78); SODIUM 140 mmol/L (136-145); TOTAL PROTEIN 7.2 gm/dL (6.4-8.2)
[2021-05-17 08:00] VITALS: BP 135/104
[2021-05-17 12:00] VITALS: BP 141/94
[2021-05-17 16:00] VITALS: BP 128/72
[2021-05-17 20:00] VITALS: BP 122/66
[2021-05-18] VITALS: BP 146/60
[2021-05-18 06:27] LABS: BASO % 0.2 % (0.0-1.0); EOS # 0.1 10*3/uL (0.0-0.4); EOS % 0.8 % (1.0-4.0); HEMATOCRIT 37.4 % (42.0-52.0); LYMPH # 1.1 10*3/uL (1.3-4.4); LYMPH % 8.3 % (27.0-41.0); MEAN CELL VOLUME 91.2 fl (80.0-94.0); MEAN CORPUSCULAR HGB CONC 32.9 g/dl (33.0-37.0); MEAN PLATELET VOLUME 9.7 fl (9.6-12.3); MONO % 7.2 % (3.0-9.0); NEUT % 82.7 % (47.0-73.0); PLATELET COUNT AUTOMATED 365 10*3/uL (130-400); RED CELL DISTRI WIDTH 13.1 % (0-14.5); WHITE BLOOD COUNT 13.2 10*3/uL (4.8-10.8)
[2021-05-18 06:43] LABS: ALKALINE PHOSPHATASE 102 U/L (45-117); CHLORIDE 108 mmol/L (98-107); CREATININE 0.83 mg/dL (0.70-1.30); LDH 264 U/L (87-241); POTASSIUM 3.7 mmol/L (3.5-5.1); SGOT/AST 31 IU/L (3-35); SGPT/ALT 31 U/L (12-78); SODIUM 141 mmol/L (136-145); TOTAL PROTEIN 6.8 gm/dL (6.4-8.2)
[2021-05-18 06:52] LABS: BUN 30 mg/dl (7-24)
[2021-05-18 08:00] VITALS: BP 135/84
[2021-05-18 12:00] VITALS: BP 160/90
[2021-05-18 16:00] VITALS: BP 146/58
[2021-05-18 20:00] VITALS: BP 149/75
[2021-05-19] VITALS: BP 138/68
[2021-05-19 06:23] LABS: ALBUMIN 1.9 gm/dl (3.1-4.5); BASO % 0.1 % (0.0-1.0); BUN 27 mg/dl (7-24); CHLORIDE 111 mmol/L (98-107); CREATININE 0.86 mg/dL (0.70-1.30); EOS # 0.2 10*3/uL (0.0-0.4); EOS % 1.7 % (1.0-4.0); HEMATOCRIT 36.3 % (42.0-52.0); LYMPH # 1.4 10*3/uL (1.3-4.4); LYMPH % 10.4 % (27.0-41.0); MEAN CELL VOLUME 92.8 fl (80.0-94.0); MEAN CORPUSCULAR HGB 29.9 pg (27.0-31.0); MEAN CORPUSCULAR HGB CONC 32.2 g/dl (33.0-37.0); MEAN PLATELET VOLUME 9.7 fl (9.6-12.3); MONO # 0.9 10*3/uL (0.1-1.0); MONO % 6.6 % (3.0-9.0); NEUT # 10.6 10*3/uL (2.3-7.9); NEUT % 80.3 % (47.0-73.0); PLATELET COUNT AUTOMATED 376 10*3/uL (130-400); POTASSIUM 3.8 mmol/L (3.5-5.1); RED BLOOD COUNT 3.91 10*6/uL (4.50-5.90); RED CELL DISTRI WIDTH 13.2 % (0-14.5); SODIUM 143 mmol/L (136-145); WHITE BLOOD COUNT 13.2 10*3/uL (4.8-10.8)
[2021-05-19 06:26] LABS: ALKALINE PHOSPHATASE 119 U/L (45-117); SGOT/AST 41 IU/L (3-35); SGPT/ALT 69 U/L (12-78); TOTAL PROTEIN 6.6 gm/dL (6.4-8.2)
[2021-05-19 08:00] VITALS: BP 141/73
[2021-05-19 11:01] VITALS: BP 145/70
[2021-05-19 16:00] VITALS: BP 114/52
[2021-05-19 21:26] VITALS: BP 118/68
[2021-05-20] VITALS: BP 141/52
[2021-05-20 06:06] LABS: ALBUMIN 1.9 gm/dl (3.1-4.5); ALKALINE PHOSPHATASE 128 U/L (45-117); BUN 26 mg/dl (7-24); CHLORIDE 109 mmol/L (98-107); CREATININE 0.76 mg/dL (0.70-1.30); POTASSIUM 3.9 mmol/L (3.5-5.1); SGOT/AST 50 IU/L (3-35); SGPT/ALT 89 U/L (12-78); SODIUM 143 mmol/L (136-145); TOTAL PROTEIN 7.2 gm/dL (6.4-8.2)
[2021-05-20 06:25] LABS: BASO % 0.2 % (0.0-1.0); EOS # 0.4 10*3/uL (0.0-0.4); EOS % 2.7 % (1.0-4.0); HEMATOCRIT 40.5 % (42.0-52.0); LYMPH # 1.3 10*3/uL (1.3-4.4); LYMPH % 8.8 % (27.0-41.0); MEAN CELL VOLUME 92.3 fl (80.0-94.0); MEAN CORPUSCULAR HGB 29.8 pg (27.0-31.0); MEAN CORPUSCULAR HGB CONC 32.3 g/dl (33.0-37.0); MEAN PLATELET VOLUME 9.9 fl (9.6-12.3); MONO # 0.9 10*3/uL (0.1-1.0); MONO % 6.1 % (3.0-9.0); NEUT # 11.8 10*3/uL (2.3-7.9); NEUT % 81.2 % (47.0-73.0); PLATELET COUNT AUTOMATED 410 10*3/uL (130-400); RED BLOOD COUNT 4.39 10*6/uL (4.50-5.90); RED CELL DISTRI WIDTH 13.1 % (0-14.5); WHITE BLOOD COUNT 14.5 10*3/uL (4.8-10.8)
[2021-05-20 08:00] VITALS: BP 124/84
[2021-05-20 12:00] VITALS: BP 130/63; BP 139/46
[2021-05-20 16:00] VITALS: BP 124/62
[2021-05-20 20:00] VITALS: BP 149/78
[2021-05-21] VITALS: BP 142/98
[2021-05-21 06:08] LABS: ALBUMIN 1.8 gm/dl (3.1-4.5); BUN 29 mg/dl (7-24); CHLORIDE 110 mmol/L (98-107); POTASSIUM 3.8 mmol/L (3.5-5.1); SGOT/AST 60 IU/L (3-35); SGPT/ALT 104 U/L (12-78); SODIUM 142 mmol/L (136-145); TOTAL PROTEIN 6.7 gm/dL (6.4-8.2)
[2021-05-21 06:09] LABS: ALKALINE PHOSPHATASE 127 U/L (45-117); CREATININE 0.74 mg/dL (0.70-1.30)
[2021-05-21 06:25] LABS: BASO % 0.2 % (0.0-1.0); EOS # 0.4 10*3/uL (0.0-0.4); EOS % 2.9 % (1.0-4.0); HEMATOCRIT 39.8 % (42.0-52.0); LYMPH # 0.9 10*3/uL (1.3-4.4); LYMPH % 6.6 % (27.0-41.0); MEAN CORPUSCULAR HGB 29.7 pg (27.0-31.0); MEAN CORPUSCULAR HGB CONC 31.9 g/dl (33.0-37.0); MEAN PLATELET VOLUME 9.9 fl (9.6-12.3); MONO # 0.7 10*3/uL (0.1-1.0); MONO % 5.4 % (3.0-9.0); NEUT # 11.5 10*3/uL (2.3-7.9); NEUT % 83.9 % (47.0-73.0); PLATELET COUNT AUTOMATED 422 10*3/uL (130-400); RED BLOOD COUNT 4.28 10*6/uL (4.50-5.90); RED CELL DISTRI WIDTH 13.2 % (0-14.5); WHITE BLOOD COUNT 13.7 10*3/uL (4.8-10.8)
[2021-05-21 08:00] VITALS: BP 147/60
[2021-05-21 12:00] VITALS: BP 179/77
[2021-05-21 14:10] VITALS: BP 117/60
[2021-05-21 20:00] VITALS: BP 105/90
[2021-05-22] VITALS: BP 110/77
[2021-05-22 06:17] LABS: BASO % 0.2 % (0.0-1.0); EOS # 0.4 10*3/uL (0.0-0.4); EOS % 2.4 % (1.0-4.0); HEMATOCRIT 40.8 % (42.0-52.0); LYMPH # 1.1 10*3/uL (1.3-4.4); LYMPH % 7.5 % (27.0-41.0); MEAN CELL VOLUME 92.9 fl (80.0-94.0); MEAN CORPUSCULAR HGB 29.8 pg (27.0-31.0); MEAN CORPUSCULAR HGB CONC 32.1 g/dl (33.0-37.0); MEAN PLATELET VOLUME 9.7 fl (9.6-12.3); MONO % 6.4 % (3.0-9.0); NEUT # 12.4 10*3/uL (2.3-7.9); NEUT % 82.2 % (47.0-73.0); PLATELET COUNT AUTOMATED 417 10*3/uL (130-400); RED BLOOD COUNT 4.39 10*6/uL (4.50-5.90); RED CELL DISTRI WIDTH 13.2 % (0-14.5); WHITE BLOOD COUNT 15.1 10*3/uL (4.8-10.8)
[2021-05-22 06:24] LABS: ALKALINE PHOSPHATASE 146 U/L (45-117); BUN 28 mg/dl (7-24); CHLORIDE 109 mmol/L (98-107); CREATININE 0.86 mg/dL (0.70-1.30); POTASSIUM 3.8 mmol/L (3.5-5.1); SGOT/AST 89 IU/L (3-35); SGPT/ALT 152 U/L (12-78); SODIUM 141 mmol/L (136-145); TOTAL PROTEIN 7.1 gm/dL (6.4-8.2)
[2021-05-22 08:00] VITALS: BP 112/48
[2021-05-22 12:00] VITALS: BP 136/65
[2021-05-22 16:00] VITALS: BP 122/70
[2021-05-23] VITALS: BP 150/78
[2021-05-23 06:30] LABS: ALBUMIN 2.1 gm/dl (3.1-4.5); BUN 29 mg/dl (7-24); CHLORIDE 109 mmol/L (98-107); POTASSIUM 4.2 mmol/L (3.5-5.1); SGOT/AST 76 IU/L (3-35); SGPT/ALT 166 U/L (12-78); SODIUM 143 mmol/L (136-145)
[2021-05-23 06:32] LABS: ALKALINE PHOSPHATASE 155 U/L (45-117); CREATININE 0.82 mg/dL (0.70-1.30); TOTAL PROTEIN 7.3 gm/dL (6.4-8.2)
[2021-05-23 12:00] VITALS: BP 169/86
[2021-05-23 16:00] VITALS: BP 137/89
== END 2021-05-23 19:22 | disposition hospice, inpatient (51) | DRG 177 ==
LOC: ED 20:09 → 4E 21:26 → EDHOLD 21:26 → 4E 21:44
PROVIDERS: Internal Medicine; Internal Medicine Critical Care Medicine; ADMIT Internal Medicine; ATTEND Internal Medicine
PROC: XW033E5 Introduction of Remdesivir Anti-infective into Peripheral Vein, Percutaneous Approach, New Technology Group 5 (ICD-10-PCS; principal; 2021-05-15)
DX: U07.1 COVID-19 (principal); J12.82 Pneumonia due to coronavirus disease 2019; E43 Unspecified severe protein-calorie malnutrition; I26.99 Other pulmonary embolism without acute cor pulmonale; J96.01 Acute respiratory failure with hypoxia; G93.41 Metabolic encephalopathy; E87.1 Hypo-osmolality and hyponatremia; R65.10 Systemic inflammatory response syndrome (SIRS) of non-infectious origin without acute organ dysfunction; F33.1 Major depressive disorder, recurrent, moderate; F02.81 Dementia in other diseases classified elsewhere, unspecified severity, with behavioral disturbance; F11.20 Opioid dependence, uncomplicated; G91.2 (Idiopathic) normal pressure hydrocephalus; I10 Essential (primary) hypertension; R62.7 Adult failure to thrive; M48.061 Spinal stenosis, lumbar region without neurogenic claudication; M47.816 Spondylosis without myelopathy or radiculopathy, lumbar region; G30.1 Alzheimer's disease with late onset; I48.91 Unspecified atrial fibrillation; E88.09 Other disorders of plasma-protein metabolism, not elsewhere classified; K21.9 Gastro-esophageal reflux disease without esophagitis; Z51.5 Encounter for palliative care; Z79.01 Long term (current) use of anticoagulants; Z88.8 Allergy status to other drugs, medicaments and biological substances; Z68.24 Body mass index [BMI] 24.0-24.9, adult

== ENCOUNTER 2021-05-23 19:27 | Inpatient (IN) | payer OTHER, MEDICARE ==
[~2021-05-23] VITALS: Ht 177.8 cm; Wt 73.5 kg
[2021-05-24] VITALS: BP 144/80
[2021-05-24 08:00] VITALS: BP 94/44
[2021-05-24 12:00] VITALS: BP 115/49
[2021-05-24 16:00] VITALS: BP 114/50
[2021-05-24 20:00] VITALS: BP 140/93
[2021-05-25] VITALS: BP 156/87
[2021-05-25 08:00] VITALS: BP 143/82
[2021-05-25 12:00] VITALS: BP 137/64
[2021-05-25 16:00] VITALS: BP 143/68
[2021-05-26] VITALS: BP 113/54
[2021-05-26 08:00] VITALS: BP 122/51
[2021-05-26 08:49] VITALS: BP 143/50
[2021-05-26 12:00] VITALS: BP 142/46
[2021-05-26 16:00] VITALS: BP 139/43
[2021-05-26 20:00] VITALS: BP 128/42
[2021-05-27] VITALS: BP 145/59
[2021-05-27 08:00] VITALS: BP 104/82
[2021-05-27 12:00] VITALS: BP 134/81
[2021-05-27 16:00] VITALS: BP 114/50
[2021-05-28] VITALS: BP 101/63
[2021-05-28 08:00] VITALS: BP 102/52
[2021-05-28 12:00] VITALS: BP 95/62
[2021-05-29] VITALS: BP 106/36
== END 2021-05-29 09:05 | DRG 177 ==
LOC: 4E 19:27
PROVIDERS: ADMIT Family Medicine; ATTEND Family Medicine
DX: U07.1 COVID-19 (principal); J12.82 Pneumonia due to coronavirus disease 2019; I26.99 Other pulmonary embolism without acute cor pulmonale; E43 Unspecified severe protein-calorie malnutrition; G93.41 Metabolic encephalopathy; J96.00 Acute respiratory failure, unspecified whether with hypoxia or hypercapnia; F02.81 Dementia in other diseases classified elsewhere, unspecified severity, with behavioral disturbance; G91.2 (Idiopathic) normal pressure hydrocephalus; Z51.5 Encounter for palliative care; I48.91 Unspecified atrial fibrillation; G30.9 Alzheimer's disease, unspecified; R74.01 Elevation of levels of liver transaminase levels; R73.9 Hyperglycemia, unspecified; D64.9 Anemia, unspecified; F32.A Depression, unspecified; K21.9 Gastro-esophageal reflux disease without esophagitis; I10 Essential (primary) hypertension; M48.061 Spinal stenosis, lumbar region without neurogenic claudication; M47.816 Spondylosis without myelopathy or radiculopathy, lumbar region; Z90.49 Acquired absence of other specified parts of digestive tract; Z68.24 Body mass index [BMI] 24.0-24.9, adult